=== PATIENT | male | born 1950 ===

== ENCOUNTER → 2017-06-04 | Outpatient (CLI) | payer MEDICARE, OTHER | LOC: GMAM 13:05 | PROVIDERS: ATTEND Family Medicine | DX: R53.83 Other fatigue (principal); R53.81 Other malaise; I20.9 Angina pectoris, unspecified; Z12.5 Encounter for screening for malignant neoplasm of prostate | CPT/HCPCS: 84443; G0103 ==

== ENCOUNTER → 2017-07-12 | Outpatient (CLI) | payer MEDICARE, OTHER | END | disposition home or self-care (01) | LOC: GMAM 17:29 | PROVIDERS: ATTEND Family Medicine | DX: N40.1 Benign prostatic hyperplasia with lower urinary tract symptoms (principal) ==

== ENCOUNTER → 2018-03-24 | Outpatient (CLI) | payer MEDICARE, OTHER ==
--- NOTE | 2018-03-24 08:54 | MRI ---
EXAM DESCRIPTION: Cervical Spine CLINICAL HISTORY: CERVICAL RADICULOPATHY COMPARISON: X-ray C-spine October 25, 2017 TECHNIQUE: MRI of the cervical spine is performed according to our usual protocol. FINDINGS: Sagittal T2 images reveal decreased signal intensity within the intervertebral discs consistent with generalized disc desiccation. On T2 images, small linear focus of increased signal intensity in the central cord is seen at the lower C6 level which could be old injury or mild compressive myelopathy. However axial images which suggest segmentally prominent central canal. This is not thought likely to represent syringomyelia. Posterior discal abnormalities are mildly prominent at C2-3 and C3-4 levels more than other levels. Sagittal T1 images show benign marrow signal characteristics. Normal T1 appearance of the cervical and upper thoracic spinal cord. Normal alignment of the vertebral bodies and facets. Sagittal STIR images are negative for high signal intensity marrow edema within the vertebral bodies or posterior elements. No paraspinous fluid collection or cystic lesion. Axial images were obtained to evaluate the disc levels. C2-3: Mild diffuse posterior disc/osteophyte complex without significant spinal stenosis or neural foraminal narrowing. Facets appear normal. Normal appearance of the cord at this level. C3-4: Mild diffuse posterior disc/osteophyte complex without significant spinal stenosis. There is moderate right and mild left neural foraminal narrowing. Mild facet degenerative spurring bilaterally. Normal appearance of the cord at this level. C4-5: Moderate posterior disc/osteophyte complex is seen with partial effacement of CSF around the cord and slight ventral cord contouring. The AP diameter of the spinal canal at this level measures 9 mm. Uncovertebral joint spurring and facet spurring of moderate severity cause moderately severe right and [id number] left neural foraminal narrowing. C5-6: Mild diffuse posterior disc/osteophyte complex without significant spinal stenosis. Neural foraminal narrowing appears moderately severe bilaterally related to uncovertebral joint spurring. There is mild facet spurring as well. Normal appearance of the cord at this level. Behind C6, no worrisome cord lesion is seen on the axial images. The central canal appears slightly prominent at this level. C6-7: Mild diffuse posterior annular bulge without significant spinal stenosis. Uncovertebral joint spurring causes mild neural foraminal narrowing. Facets appear minimally degenerated. Normal appearance of the cord at this level. C7-T1: Mild diffuse posterior disc/osteophyte complex is seen without significant spinal stenosis. Neural foraminal narrowing on the right is mild. Moderate to moderately severe neural foraminal narrowing on the left is related to uncovertebral joint more than facet spurring. Normal appearance of the cord at this level. IMPRESSION: Multilevel posterior annular bulges with no acute-appearing disc herniation or significant spinal stenosis. Uncovertebral joint and facet spurring narrowing the neural foramina noted above. Minimal increased signal intensity in the cervical spinal cord behind C6, probably prominent central canal. Electronically signed by: Dick Cruz MD 03/24/2018 8:53 AM CDT
== END ==
LOC: MRI 08:00
PROVIDERS: ATTEND Family Medicine
DX: M54.12 Radiculopathy, cervical region (principal)

== ENCOUNTER 2019-06-21 04:39 | Emergency (ER) | payer MEDICARE, OTHER ==
[2019-06-21] MEDS: ASPIRIN TABLET 325 MG TAB PO ONE (05:04)
--- NOTE | 2019-06-21 05:31 | RAD ---
EXAM: XR Chest, 1 View CLINICAL HISTORY: The patient is 69 years old and is Male; chest pain TECHNIQUE: Frontal view of the chest. COMPARISON: No relevant prior studies available. FINDINGS: LUNGS: There are low lung volumes. PLEURAL SPACE: Unremarkable. No pneumothorax. HEART: Unremarkable. No cardiomegaly. MEDIASTINUM: Unremarkable. BONES/JOINTS: Unremarkable. IMPRESSION: Low lung volumes without acute findings. Electronically signed by: Randi Arvizu MD 06/21/2019 5:28 AM CDT
--- NOTE | 2019-06-21 05:39 | ED.PDOC ---
History of Present Illness - History of Present Illness Initial Comments: 69 yo M no significant PMH PMD is Shirley Cortez presents to ED c/o chest cavity pain that worsened after rising up after bending and heavy lifting of bag of ice and other items prior to arrival. Denies trauma fever chills nausea vomiting diarrhea admits intermittent sob denies diaphoresis. Pt. reports pain 'just grabbed me' also while twisting hi body in the department pt jerked and exclaimed 'there it is again' No change in diet rest bowel or bladder denies smoking admits drinking beer occasionally denies FH HTN DM no other c/o today. <Karthik Walker - Last Filed: 06/21/19 07:22> <Iris Cortez - Last Filed: 06/21/19 08:59> - General Chief Complaint: Chest Pain/AK Stated Complaint: chest pain Time Seen by Provider: 06/21/19 05:35 - History of Present Illness Allergies/Adverse Reactions: Allergies Dextromethorphan [From NyQuil Nighttime Cold/Flu Medicine] Allergy (Verified 06/21/19 04:48) Doxylamine [From NyQuil Nighttime Cold/Flu Medicine] Allergy (Verified 06/21/19 04:48) Ethanol [From NyQuil Nighttime Cold/Flu Medicine] Allergy (Verified 06/21/19 04:48) Pseudoephedrine [From NyQuil Nighttime Cold/Flu Medicine] Allergy (Verified 06/21/19 04:48) Home Medications: Ambulatory Orders NK 06/21/19 Review of Systems - Review of Systems Constitutional: States: no symptoms reported EENTM: States: no symptoms reported Respiratory: States: no symptoms reported Cardiology: States: chest pain Gastrointestinal/Abdominal: States: no symptoms reported Genitourinary: States: no symptoms reported Musculoskeletal: States: see HPI Skin: States: no symptoms reported Neurological: States: no symptoms reported Endocrine: States: no symptoms reported Hematologic/Lymphatic: States: no symptoms reported All other Systems: Reviewed and Negative <Karthik Walker - Last Filed: 06/21/19 07:22> Past Medical History (General) - Patient Medical History Hx Congestive Heart Failure: No Hx Diabetes: No - Vaccination History Immunizations Up to Date: Yes <Karthik Walker - Last Filed: 06/21/19 07:22> Family Medical History - Family History Father Family History: Unknown <Karthik Walker - Last Filed: 06/21/19 07:22> Physical Exam - Physical Exam General Appearance: Other - uncomfortable Eyes, Ears, Nose, Throat Exam: normal ENT inspection Neck: non-tender, full range of motion Respiratory: normal breath sounds, no respiratory distress Cardiovascular/Chest: regular rate, rhythm, other - chest wall pain reproducible on exam Gastrointestinal/Abdominal: non tender, soft Extremity: normal range of motion, non-tender Neurologic: no motor/sensory deficits Skin Exam: normal color <Karthik Walker - Last Filed: 06/21/19 07:22> Progress - Progress Progress: 06/21/19 05:47 A/P-Chest Pain, Muscle Strain- 1.iv fluids aspirin tylenol cbc cmp lipase trop ekg cxr urinalysis reassess 06/21/19 07:07 Laboratory Tests 06/21/19 06/21/19 06/21/19 04:55 04:55 04:55 WBC 9.9 RBC 4.50 L Hgb 14.3 Hct 41.6 L MCV 92.4 MCH 31.8 H MCHC 34.4 RDW 13.2 Plt Count 256 MPV 8.2 Absolute Neuts (auto) 7.20 H Absolute Lymphs (auto) 1.70 Absolute Monos (auto) 0.80 Absolute Eos (auto) 0.20 Absolute Basos (auto) 0.10 Neutrophils % 72.1 Lymphocytes % 17.6 L Monocytes % 8.0 Eosinophils % 1.6 Basophils % 0.7 PT 9.8 INR 0.98 PTT (SP) 25.1 D-Dimer, Quantitative 0.61 H* Sodium 138 Potassium 3.9 Chloride 103 Carbon Dioxide 25 Anion Gap 13.9 BUN 16 Creatinine 0.80 BUN/Creatinine Ratio 20.0 Random Glucose 108 H Serum Osmolality 277.4 Calcium 9.0 Magnesium 2.0 Total Bilirubin 0.7 Direct Bilirubin < 0.1 Indirect Bilirubin 0.6 AST 23 ALT 21 Alkaline Phosphatase 73 Creatine Kinase 200 H CK-MB (CK-2) 4.7 H* CK-MB (CK-2) % 2.35 Troponin I < 0.02 B-Natriuretic Peptide 13.5 Serum Total Protein 7.0 Albumin 4.0 Lipase 41 Urine Color Urine Appearance Urine pH Ur Specific [place] Urine Protein Urine Glucose (UA) Urine Ketones Urine Blood Urine Nitrite Urine Bilirubin Urine Urobilinogen Ur Leukocyte Esterase Urine RBC Urine WBC Ur Epithelial Cells Amorphous Sediment Urine Bacteria 06/21/19 06:05 WBC RBC Hgb Hct MCV MCH MCHC RDW Plt Count MPV Absolute Neuts (auto) Absolute Lymphs (auto) Absolute Monos (auto) Absolute Eos (auto) Absolute Basos (auto) Neutrophils % Lymphocytes % Monocytes % Eosinophils % Basophils % PT INR PTT (SP) D-Dimer, Quantitative Sodium Potassium Chloride Carbon Dioxide Anion Gap BUN Creatinine BUN/Creatinine Ratio Random Glucose Serum Osmolality Calcium Magnesium Total Bilirubin Direct Bilirubin Indirect Bilirubin AST ALT Alkaline Phosphatase Creatine Kinase CK-MB (CK-2) CK-MB (CK-2) % Troponin I B-Natriuretic Peptide Serum Total Protein Albumin Lipase Urine Color Yellow Urine Appearance Clear Urine pH 5.0 Ur Specific [place] 1.020 Urine Protein Negative Urine Glucose (UA) Negative Urine Ketones Negative Urine Blood Negative Urine Nitrite Negative Urine Bilirubin Negative Urine Urobilinogen 0.2 Ur Leukocyte Esterase Negative Urine RBC 0 Urine WBC 0-1 Ur Epithelial Cells 0-1 Amorphous Sediment 1+ Urine Bacteria 0 06/21/19 07:21 On reassessment pt comfortable and fast asleep NAD, ddimer is elevated ordered trop#2 and CTA Chest signed out to Dr. Cortez 06/21/19 07:22 EXAM: XR Chest, 1 View CLINICAL HISTORY: The patient is 69 years old and is Male; chest pain TECHNIQUE: Frontal view of the chest. COMPARISON: No relevant prior studies available. FINDINGS: LUNGS: There are low lung volumes. PLEURAL SPACE: Unremarkable. No pneumothorax. HEART: Unremarkable. No cardiomegaly. MEDIASTINUM: Unremarkable. BONES/JOINTS: Unremarkable. IMPRESSION: Low lung volumes without acute findings. Electronically signed by: Randi Arvizu MD 06/21/2019 5:28 AM CDT EXAM: CT Abdomen and Pelvis With Intravenous Contrast CLINICAL HISTORY: The patient is 69 years old and is Male; pain across lower chest TECHNIQUE: Axial computed tomography images of the abdomen and pelvis with intravenous contrast. Sagittal and coronal reformatted images were created and reviewed. This CT exam was performed using one or more of the following dose reduction techniques: automated exposure control, adjustment of the mA and/or kV according to patient size, and/or use of iterative reconstruction technique. COMPARISON: No relevant prior studies available. FINDINGS: LUNG BASES: Unremarkable. No mass. No consolidation. MEDIASTINUM: A moderate sized hiatal hernia is present. ABDOMEN: LIVER: The liver is enlarged. GALLBLADDER AND BILE DUCTS: No calcified stones. No ductal dilation. PANCREAS: No ductal dilation. No mass. SPLEEN: Unremarkable. ADRENALS: Unremarkable. No mass. KIDNEYS AND URETERS: Exophytic renal cysts are present, the largest on the right measures 3.4 cm. No follow-up is recommended. The kidneys enhance symmetrically. No obstructing renal or ureteral calculus is seen. STOMACH AND BOWEL: The stomach is decompressed. The small bowel is relatively normal in caliber. A moderate amount stool is present throughout colon. There is no mucosal thickening or evidence of bowel obstruction. PELVIS: APPENDIX: The appendix is normal in caliber without surrounding inflammation. BLADDER: The bladder is well distended. REPRODUCTIVE: Unremarkable as visualized. ABDOMEN and PELVIS: INTRAPERITONEAL SPACE: Unremarkable. No free air. No significant fluid collection. BONES/JOINTS: Degenerative change of the spine is present. Vertebroplasty at T12 is noted. SOFT TISSUES: There are small bilateral fat containing inguinal hernias. VASCULATURE: Atherosclerosis of the vasculature is present. The vessels are normal in caliber. No abdominal aortic aneurysm. LYMPH NODES: Unremarkable. No enlarged lymph nodes. IMPRESSION: No acute findings on this contrasted CT of the abdomen and pelvis to explain the patient's symptoms. Electronically signed by: Randi Arvizu MD 06/21/2019 6:32 AM CDT - Results/Orders Results/Orders: EKG-non specific TW changes No STEMI RBBB NSR 65bpm <Karthik Walker - Last Filed: 06/21/19 07:22> - Progress Progress: 06/21/19 08:55 the patient is a 69-year-old male presented to emergency room secondary to a couple of very brief episodes of sharp stabbing lower bilateral chest or upper abdominal discomfort primarily with movement or taking a deep breath. This seems to have started after lifting something. Vital signs have remained stable. The patient has been monitored on telemetry monitoring for more than 4 hours. He is no longer having the discomfort. EKG and lab work along with CT scan of abdomen and pelvis and chest x-ray are reassuring. I believe that the atypical chest pain is primarily musculoskeletal versus pleuritic in origin. The patient can use an dabg-cew-fhfmegl anti-inflammatory such as Motrin or Aleve intermittently over the next couple of days to reduce any residual discomfort. He does need to watch out for any progressive shortness of breath, fever or productive cough. Obviously if symptoms come back or worsen then repeat or additional evaluation may be warranted. The patient has been resting comfortably. Follow-up with primary care doctor later this week. iris cortez [phone] - Results/Orders Results/Orders: chest x-ray shows no pneumothorax, infiltrate, obvious masses or fluid overload. CT scan of abdomen and pelvis shows no acute pathology. See report for details. There is moderate constipation. Laboratory Results - last 24 hr 06/21/19 06/21/19 06/21/19 04:55 04:55 04:55 WBC 9.9 RBC 4.50 L Hgb 14.3 Hct 41.6 L MCV 92.4 MCH 31.8 H MCHC 34.4 RDW 13.2 Plt Count 256 MPV 8.2 Absolute Neuts (auto) 7.20 H Absolute Lymphs (auto) 1.70 Absolute Monos (auto) 0.80 Absolute Eos (auto) 0.20 Absolute Basos (auto) 0.10 Neutrophils % 72.1 Lymphocytes % 17.6 L Monocytes % 8.0 Eosinophils % 1.6 Basophils % 0.7 PT 9.8 INR 0.98 PTT (SP) 25.1 D-Dimer, Quantitative 0.61 H* Sodium 138 Potassium 3.9 Chloride 103 Carbon Dioxide 25 Anion Gap 13.9 BUN 16 Creatinine 0.80 BUN/Creatinine Ratio 20.0 Random Glucose 108 H Serum Osmolality 277.4 Calcium 9.0 Magnesium 2.0 Total Bilirubin 0.7 Direct Bilirubin < 0.1 Indirect Bilirubin 0.6 AST 23 ALT 21 Alkaline Phosphatase 73 Creatine Kinase 200 H CK-MB (CK-2) 4.7 H* CK-MB (CK-2) % 2.35 Troponin I < 0.02 B-Natriuretic Peptide 13.5 Serum Total Protein 7.0 Albumin 4.0 Lipase 41 Urine Color Urine Appearance Urine pH Ur Specific [place] Urine Protein Urine Glucose (UA) Urine Ketones Urine Blood Urine Nitrite Urine Bilirubin Urine Urobilinogen Ur Leukocyte Esterase Urine RBC Urine WBC Ur Epithelial Cells Amorphous Sediment Urine Bacteria 06/21/19 06/21/19 06:05 07:25 WBC RBC Hgb Hct MCV MCH MCHC RDW Plt Count MPV Absolute Neuts (auto) Absolute Lymphs (auto) Absolute Monos (auto) Absolute Eos (auto) Absolute Basos (auto) Neutrophils % Lymphocytes % Monocytes % Eosinophils % Basophils % PT INR PTT (SP) D-Dimer, Quantitative Sodium Potassium Chloride Carbon Dioxide Anion Gap BUN Creatinine BUN/Creatinine Ratio Random Glucose Serum Osmolality Calcium Magnesium Total Bilirubin Direct Bilirubin Indirect Bilirubin AST ALT Alkaline Phosphatase Creatine Kinase CK-MB (CK-2) CK-MB (CK-2) % Troponin I < 0.02 B-Natriuretic Peptide Serum Total Protein Albumin Lipase Urine Color Yellow Urine Appearance Clear Urine pH 5.0 Ur Specific [place] 1.020 Urine Protein Negative Urine Glucose (UA) Negative Urine Ketones Negative Urine Blood Negative Urine Nitrite Negative Urine Bilirubin Negative Urine Urobilinogen 0.2 Ur Leukocyte Esterase Negative Urine RBC 0 Urine WBC 0-1 Ur Epithelial Cells 0-1 Amorphous Sediment 1+ Urine Bacteria 0 <Iris Cortez - Last Filed: 06/21/19 08:59> Departure <Karthik Walker - Last Filed: 06/21/19 07:22> - Departure Diet: regular diet Activity: increase activity as tolerated <Iris Cortez - Last Filed: 06/21/19 08:59> - Departure Clinical Impression: Atypical chest pain Disposition: Discharge to Home or Self Care Condition: Fair Departure Forms: ED Discharge - Pt. Copy, Patient Portal Self Enrollment Instructions: Chest Pain That Is Not Caused by the Heart (DC) Referrals: Gregory Cortez MD [Primary Care Provider] - 1-5 Days Home Medications: Ambulatory Orders NK 06/21/19 Additional Instructions: the patient is a 69-year-old male presented to emergency room secondary to a couple of very brief episodes of sharp stabbing lower bilateral chest or upper abdominal discomfort primarily with movement or taking a deep breath. This seems to have started after lifting something. Vital signs have remained stable. The patient has been monitored on telemetry monitoring for more than 4 hours. He is no longer having the discomfort. EKG and lab work along with CT scan of abdomen and pelvis and chest x-ray are reassuring. I believe that the atypical chest pain is primarily musculoskeletal versus pleuritic in origin. The patient can use an qtii-xil-umggafh anti-inflammatory such as Motrin or Aleve intermittently over the next couple of days to reduce any residual discomfort. He does need to watch out for any progressive shortness of breath, fever or productive cough. Obviously if symptoms come back or worsen then repeat or additional evaluation may be warranted. The patient has been resting comfortably. Follow-up with primary care doctor later this week.
[2019-06-21] MEDS: ACETAMINOPHEN 500 MG TAB PO ONE (06:01)
[2019-06-21] MEDS: SODIUM CHLORIDE 0.9% 1000ML 1,000 ML IVS ONE (06:01)
--- NOTE | 2019-06-21 06:34 | CT ---
EXAM: CT Abdomen and Pelvis With Intravenous Contrast CLINICAL HISTORY: The patient is 69 years old and is Male; pain across lower chest TECHNIQUE: Axial computed tomography images of the abdomen and pelvis with intravenous contrast. Sagittal and coronal reformatted images were created and reviewed. This CT exam was performed using one or more of the following dose reduction techniques: automated exposure control, adjustment of the mA and/or kV according to patient size, and/or use of iterative reconstruction technique. COMPARISON: No relevant prior studies available. FINDINGS: LUNG BASES: Unremarkable. No mass. No consolidation. MEDIASTINUM: A moderate sized hiatal hernia is present. ABDOMEN: LIVER: The liver is enlarged. GALLBLADDER AND BILE DUCTS: No calcified stones. No ductal dilation. PANCREAS: No ductal dilation. No mass. SPLEEN: Unremarkable. ADRENALS: Unremarkable. No mass. KIDNEYS AND URETERS: Exophytic renal cysts are present, the largest on the right measures 3.4 cm. No follow-up is recommended. The kidneys enhance symmetrically. No obstructing renal or ureteral calculus is seen. STOMACH AND BOWEL: The stomach is decompressed. The small bowel is relatively normal in caliber. A moderate amount stool is present throughout colon. There is no mucosal thickening or evidence of bowel obstruction. PELVIS: APPENDIX: The appendix is normal in caliber without surrounding inflammation. BLADDER: The bladder is well distended. REPRODUCTIVE: Unremarkable as visualized. ABDOMEN and PELVIS: INTRAPERITONEAL SPACE: Unremarkable. No free air. No significant fluid collection. BONES/JOINTS: Degenerative change of the spine is present. Vertebroplasty at T12 is noted. SOFT TISSUES: There are small bilateral fat containing inguinal hernias. VASCULATURE: Atherosclerosis of the vasculature is present. The vessels are normal in caliber. No abdominal aortic aneurysm. LYMPH NODES: Unremarkable. No enlarged lymph nodes. IMPRESSION: No acute findings on this contrasted CT of the abdomen and pelvis to explain the patient's symptoms. Electronically signed by: Randi Arvizu MD 06/21/2019 6:32 AM CDT
[2019-06-21 08:26] VITALS: BP 159/96
[2019-06-21 09:12] VITALS: TEMP 98; O2SAT 92
== END 2019-06-21 09:12 | disposition home or self-care (01) ==
LOC: ER 04:39
DX: R07.89 Other chest pain (principal); Z88.8 Allergy status to other drugs, medicaments and biological substances
CPT/HCPCS: 36415; 71045; 74177; 80048; 80076; 81001; 82550; 82553; 83690; 83880; 84484; 85025; 85379; 85610; 85730; 93005; J7030

== ENCOUNTER 2019-07-13 05:34 | Day surgery (SDC) | payer MEDICARE, OTHER ==
[2019-07-13] MEDS ORDERED: PROPOFOL 200 MG/20 ML VIAL IV ONE (07:00)
[2019-07-13] MEDS ORDERED: LIDOCAINE 1% 10 ML VIAL INJ ONE (07:00)
[2019-07-13] MEDS ORDERED: LACTATED RINGERS 1,000 ML ONE (11:06)
[2019-07-13] MEDS ORDERED: MIDAZOLAM INJ 2 MG/2 ML VIAL ONE (13:42)
[2019-07-13] MEDS ORDERED: ELECTROLYTE-A 1,000 ML IVS ONE (14:00)
[2019-07-13 15:37] VITALS: BP 118/58; TEMP 96; O2SAT 94
--- NOTE | 2019-07-28 10:54 | OP ---
DATE OF PROCEDURE: 07/13/19 PREOPERATIVE DIAGNOSIS: 1. Abdominal pain. 2. Need for screening colonoscopy. POSTOPERATIVE DIAGNOSIS: 1. Abdominal pain. 2. Need for screening colonoscopy. PROCEDURE: 1. EGD with forceps biopsy. 2. Colonoscopy. SURGEON: Paulo Garcia MD ANESTHESIA: General. INDICATION: As stated. PROCEDURE: In the lateral position, the patient was made comfortable. General anesthesia was induced. Bite block in place. Abdomen exam was normal. The EGD scope was passed, identifying the posterior pharynx, which appeared normal. The esophagus was entered without difficulty. There was no evidence of significant esophagitis. The Z-line was normal. We advanced the endoscope to the deep duodenum and found no evidence of ulcers. Upon withdrawal, there appeared to be some erythema in the antrum, so major account representative biopsies were taken. There was no bleeding upon withdrawal. On retroflexion, no other abnormalities were seen. Again, the esophagus appeared normal. He was then placed in the left lateral position. Digital rectal exam was normal. The colonoscope was passed without difficulty. There was an adequate prep. We went all the way to the cecum, which was confirmed by the landmarks. Upon withdrawal, no significant polyps were seen. FINAL IMPRESSION: 1. Stomach consistent with minimal gastritis. 2. Normal colonoscopy with followup colonoscopy in 10 years. #[id number] [facility]
== END 2019-07-13 15:15 | disposition home or self-care (01) ==
LOC: AMB 05:34
PROVIDERS: ATTEND Surgery
DX: R10.9 Unspecified abdominal pain (principal); K29.50 Unspecified chronic gastritis without bleeding; K21.9 Gastro-esophageal reflux disease without esophagitis; K58.1 Irritable bowel syndrome with constipation; G89.29 Other chronic pain; M54.2 Cervicalgia; M54.5 Low back pain; Z79.899 Other long term (current) drug therapy
CPT/HCPCS: 00813; 43239; 45378; 88305; 88342; J2250; J3490; J7120

== ENCOUNTER → 2019-07-24 | Outpatient (CLI) | payer MEDICARE, OTHER ==
--- NOTE | 2019-07-25 10:27 | US ---
EXAM DESCRIPTION: Soft Tissue,Abdomen: ULTRASOUND. CLINICAL HISTORY: 69 years Male UNILATERAL INGUINAL HERNIA WITHOUT OBSTRUCTION COMPARISON: None Available. TECHNIQUE: Transcutaneous scanning: Hendrickson-scale and Doppler modes. FINDINGS: Scanning of the left inguinal canal where masses palpable. Subcutaneous adipose tissue is well demonstrated. Later images, a partially circumscribed mostly hypoechoic segment of bowel can be seen within the hernia. Peristalsis is noted. Nonvascular. No dominant solid mass or distinct cyst. No parenchymal edema or large calcifications. IMPRESSION: Segment of bowel noted in the left inguinal canal hernia. No mass or fluid. Electronically signed by: Julio Wagner MD 07/25/2019 10:25 AM CDT
== END ==
LOC: US 13:36
PROVIDERS: ATTEND Family Medicine
DX: K40.90 Unilateral inguinal hernia, without obstruction or gangrene, not specified as recurrent (principal)

== ENCOUNTER 2019-08-03 05:42 | Day surgery (SDC) | payer MEDICARE, OTHER ==
[2019-08-03] MEDS ORDERED: EPINEPHrine HCL AMP 1 MG/ML AMP ONE (07:00)
[2019-08-03] MEDS ORDERED: DEXAMETHASONE INJ 10 MG/ML VIAL ONE (07:00)
[2019-08-03] MEDS ORDERED: ONDANSETRON INJ 4 MG/2 ML VIAL ONE (07:00)
[2019-08-03] MEDS ORDERED: PROPOFOL 200 MG/20 ML VIAL IV ONE (07:00)
[2019-08-03] MEDS ORDERED: LIDOCAINE 1% 10 ML VIAL INJ ONE (07:00)
[2019-08-03] MEDS ORDERED: ceFAZolin SODIUM 1 GM VIAL ONE (07:17)
[2019-08-03] MEDS ORDERED: SODIUM CHL 0.9% 100ML MINI-BAG 100 ML IVPB ONE (07:17)
[2019-08-03] MEDS ORDERED: LACTATED RINGERS 1,000 ML ONE ×2 (07:17→11:59)
[2019-08-03] MEDS ORDERED: MIDAZOLAM INJ 2 MG/2 ML VIAL ONE (07:20)
[2019-08-03] MEDS ORDERED: fentaNYL CITRATE INJ 50 MCG/ML AMP ONE ×2 (07:21→13:22)
[2019-08-03] MEDS ORDERED: BUPIVACAINE 0.5% W/EPI 30 ML VIAL INJ ONE (11:10)
[2019-08-03] MEDS: fentaNYL CITRATE INJ 50 MCG/ML AMP ONE ×4 (12:40→13:15)
--- NOTE | 2019-08-03 13:42 | OP ---
DATE OF PROCEDURE: 08/03/19 PREOPERATIVE DIAGNOSIS: 1. Left inguinal hernia. POSTOPERATIVE DIAGNOSIS: 1. Left inguinal. PROCEDURE: 1. Repair of large left inguinal hernia with PHS mesh. 2. Removal of 5 cm retroperitoneal tumor. 3. Ilioinguinal nerve block for postoperative pain control. SURGEON: Paulo Garcia MD. ANESTHESIA: General. FINDINGS: The patient had a very large fatty cord and in that was a fatty hernia. In addition, a large retroperitoneal tumor coming through the internal ring that was ligated at its base. COMPLICATIONS: None. ESTIMATED BLOOD LOSS: Minimal. CONDITION: Stable. PLAN: Discharge. INDICATION: As stated. PROCEDURE: General anesthesia was induced. Ilioinguinal nerve block was performed based on anatomic landmarks. The incision was made. Subcutaneous tissue was taken down. Subcutaneous vessels were cauterized. The external oblique aponeurosis was opened along its fibers, held out of the way and then retracted. The ilioinguinal nerve was dissected free and kept out of harm's way. The cord was isolated. The large fatty retroperitoneal tumor was dissected off and ligated at its base with Vicryl. There was a fatty hernia that was from the cord and reduced. We entered the preperitoneal plane and dissected with 3 moist Raytec sponges. [employer] kept the vessels anterior as we inserted the large PHS mesh and with retraction confirmed it was lying flat in the preperitoneal plane. It was then cut around the cord and secured, non-stricturing, secured at the tubercle and laid out laterally under the external oblique. The nerve was then laid along the cord. The external oblique was closed with a running 2-0 Vicryl with care not to incorporate the nerve. More local anesthesia was placed. The wound was closed in two layers. Dressing was applied. The patient was awakened and taken to Recovery to be discharged. #[id number] [facility]
[2019-08-03] MEDS ORDERED: HYDROcodone 5MG/APAP 325MG 1 EA TAB ONE (13:56)
[2019-08-03] MEDS ORDERED: HYDROcodone 5MG/APAP 325MG 1 EA TAB PO ONE (14:00)
[2019-08-03 15:46] VITALS: BP 113/64; TEMP 96.2; O2SAT 97
== END 2019-08-03 15:20 | disposition home or self-care (01) ==
LOC: AMB 05:42
PROVIDERS: ATTEND Surgery
DX: K40.90 Unilateral inguinal hernia, without obstruction or gangrene, not specified as recurrent (principal); D17.6 Benign lipomatous neoplasm of spermatic cord; G89.18 Other acute postprocedural pain; K58.1 Irritable bowel syndrome with constipation; G89.29 Other chronic pain; M54.2 Cervicalgia; M54.5 Low back pain; K21.9 Gastro-esophageal reflux disease without esophagitis; Z79.899 Other long term (current) drug therapy
CPT/HCPCS: 00830; 49505; 55520; 64450; 88304; J0690; J1100; J2250; J2405; J3010; J3490; J7050; J7120

== ENCOUNTER 2019-08-05 13:02 | Emergency (ER) | payer MEDICARE, OTHER ==
[2019-08-05 13:15] VITALS: BP 161/89; TEMP 97.6; O2SAT 96
--- NOTE | 2019-08-05 13:29 | ED.PDOC ---
History of Present Illness - General Stated Complaint: pain at the incision site Time Seen by Provider: 08/05/19 13:24 Source: patient, Vital Signs reviewed Exam Limitations: no limitations - History of Present Illness Initial Comments: the patient is a 69-year-old gentleman who presents to the emergency room today with complaints of burning at his incision site where he had an inguinal hernia repair 2 days ago. He states that it munoz whenever he bends over to tie his shoelaces or moves. He denies any nausea or vomiting. His appetite is good. He has not had a bowel movement yet and is not passing gas. He has no abdominal pain. Patient is urinating without difficulty. He has not had any fever or chills. He did contact Dr. Malin his surgeon and was told to come by and let us look at his incision. Allergies/Adverse Reactions: Allergies Dextromethorphan [From [facility] Nighttime Cold/Flu Medicine] Allergy (Verified 07/28/19 09:47) Doxylamine [From [facility] Nighttime Cold/Flu Medicine] Allergy (Verified 07/28/19 09:47) Ethanol [From [facility] Nighttime Cold/Flu Medicine] Allergy (Verified 07/28/19 09:47) Home Medications: Ambulatory Orders Omeprazole 40 mg PO DAILY 07/10/19 Acetaminophen W/ Codeine [Acetaminophen/Codeine #3 300-30 mg] 1 tab PO Q4H PRN 08/05/19 Review of Systems - Review of Systems Constitutional: States: no symptoms reported. Denies: chills, fever EENTM: States: no symptoms reported Respiratory: States: no symptoms reported Cardiology: States: no symptoms reported Gastrointestinal/Abdominal: States: no symptoms reported. Denies: abdominal pain, nausea, vomiting, other - burning at the incision site Genitourinary: Denies: no symptoms reported Musculoskeletal: States: no symptoms reported Skin: States: no symptoms reported Neurological: States: no symptoms reported Hematologic/Lymphatic: States: no symptoms reported All other Systems: Reviewed and Negative Past Medical History (General) - Patient Medical History Hx Stroke: No Hx Congestive Heart Failure: No Hx Diabetes: No Hx Gastroesophageal Reflux: Yes Hx MRSA: No Surgical History: other - Vaccination History Hx Influenza Vaccination: Yes - 2019 Hx Pneumococcal Vaccination: Yes - Social History Hx Tobacco Use: No Hx Alcohol Use: Yes - Occasional Family Medical History - Family History Father Family History: Unknown Physical Exam - Physical Exam General Appearance: Alert, No apparent distress Eyes, Ears, Nose, Throat Exam: PERRL/EOMI, pharynx normal Cardiovascular/Chest: normal peripheral pulses, regular rate, rhythm, no edema, no gallop, no JVD, no murmur Respiratory: chest non-tender, lungs clear, normal breath sounds, no respiratory distress, no accessory muscle use Gastrointestinal/Abdominal: normal bowel sounds, non tender, soft, no organomegaly, other - left inguinal region with clean and dry incision site cov ered with Steri-Strips no signs of cellulitis no hematoma formation Back Exam: normal inspection, no CVA tenderness Extremity: normal range of motion, non-tender, no pedal edema Neurologic: hemotherapist II-XII nml as tested, no motor/sensory deficits, alert, normal mood/affect, oriented x 3 Skin Exam: warm/dry Progress - Progress Progress: 08/05/19 13:33 MDM: Hematoma, cellulitis, incision site pain, dehiscence, Departure - Departure Clinical Impression: Encounter for postoperative wound care Time of Disposition: 13:34 Disposition: Discharge to Home or Self Care Condition: Excellent Departure Forms: ED Discharge - Pt. Copy, Patient Portal Self Enrollment Referrals: Gregory Cortez MD [Primary Care Provider] - 1-2 Weeks Home Medications: Ambulatory Orders Omeprazole 40 mg PO DAILY 07/10/19 Acetaminophen W/ Codeine [Acetaminophen/Codeine #3 300-30 mg] 1 tab PO Q4H PRN 08/05/19 Additional Instructions: advised patient not to bend over or lift anything heavy in the next week. Keep follow-up appointment with surgeon. Watch for signs of infection which would include fever, increased redness, increased warmth, or increased pain. Continue current diet. Return to ER if needed.
== END 2019-08-05 13:37 | disposition home or self-care (01) ==
LOC: ER 13:02
DX: G89.18 Other acute postprocedural pain (principal); K21.9 Gastro-esophageal reflux disease without esophagitis; Z79.899 Other long term (current) drug therapy; Z88.8 Allergy status to other drugs, medicaments and biological substances